=== PATIENT | male | born 1990 ===

== ENCOUNTER 2021-11-16 16:30 | Outpatient (CLI) | payer OTHER | END 2021-11-16 16:31 | disposition home or self-care (01) | LOC: SLEEPLAB 16:30 | PROVIDERS: ATTEND Family Medicine | DX: G47.33 Obstructive sleep apnea (adult) (pediatric) (principal); R53.83 Other fatigue; R06.83 Snoring; E66.9 Obesity, unspecified; G47.00 Insomnia, unspecified; G47.10 Hypersomnia, unspecified; Z68.36 Body mass index [BMI] 36.0-36.9, adult | CPT/HCPCS: 95800 ==